=== PATIENT | male | born 1950 | race Caucasian/White ===

== ENCOUNTER → 2025-04-15 06:35 | Outpatient (REF) | payer MEDICARE, OTHER, SELFPAY | LOC: RAD 06:35 | PROVIDERS: ATTENDING PHYSICIAN Podiatrist Foot & Ankle Surgery; FAMILY PHYSICIAN Family Medicine | DX: Z11.51 Encounter for screening for human papillomavirus (HPV) (principal); L97.522 Non-pressure chronic ulcer of other part of left foot with fat layer exposed | CPT/HCPCS: 93922; 93925 ==